=== PATIENT | female | born 1975 | race Caucasian/White ===

== ENCOUNTER → 2020-09-19 | Outpatient (CLI) | payer OTHER ==
--- NOTE | 2020-09-19 15:49 | RAD ---
EXAM: Left upper extremity venous Doppler sonogram. HISTORY: Pain and swelling. TECHNIQUE: Caldera scale and color Doppler sonographic evaluation of the left upper extremity veins with spectral waveform analysis was performed. FINDINGS: There is normal color flow, normal compressibility and there are normal spectral waveforms in the upper extremity veins. IMPRESSION: No Doppler evidence of upper extremity venous thrombosis. Electronically signed by: Vanesa Sun MD (09/19/2020 3:46 PM) [id number]
== END ==
LOC: US 14:57
PROVIDERS: ATTEND Family Medicine
DX: M79.632 Pain in left forearm (principal)
CPT/HCPCS: 93971